=== PATIENT | female | born 1980 | race Caucasian/White ===

== ENCOUNTER 2018-02-20 08:12 | Inpatient (IN) | payer OTHER ==
[~2018-02-20] VITALS: Ht 170.2 cm; Wt 77.1 kg
[2018-02-20 08:52] VITALS: BP 118/58
[2018-02-20 09:05] LABS: ABSOLUTE BASOPHIL COUNT 0 /CUMM (0.0-0.2); ABSOLUTE EOSINOPHIL COUNT 0.1 /CUMM (0.0-0.7); ABSOLUTE GRANULOCYTE CT 7.8 /CUMM (1.4-6.5); ABSOLUTE LYMPH COUNT 1.9 /CUMM (1.2-3.4); ABSOLUTE MONOCYTE COUNT 0.4 /CUMM (0.10-0.60); BASOPHIL % 0.1 % (0.0-2.0); EOSINOPHIL % 0.6 % (0-5); GRANULOCYTE % 76.8 % (42.2-75.2); HEMATOCRIT 38.3 % (37-47); MEAN CORPUSCULAR HGB 32.3 PG (27.0-31.0); MEAN CORPUSCULAR HGB CONC 33.1 G/DL (33.0-37.0); MEAN CORPUSCULAR VOLUME 97.4 FL (81.0-99.0); MEAN PLATELET VOLUME 9.3 FL (7.4-10.4); PLATELET COUNT 249 /CUMM (130-400); RBC DISTRIBUTION WIDTH 13.2 % (11.5-14.5); RED BLOOD CELL CT 3.93 /CUMM (4.20-5.40); WHITE BLOOD CELL COUNT 10.2 /CUMM (4.8-10.8)
--- NOTE | 2018-02-20 15:32 | Labor & Delivery Summary ---
Delivery Summary Vaginal Delivery: Vaginal: vertex Episiotomy/Lacerations: Episiotomy/Lacerations: lac Type: 1st degree Repair: 3-0 layered Anesthesia: epi Placenta: Placenta: spontanteous, normal, 3 vessel, nuchal cord (x_), 2 Anesthesia: epidural Baby's Weight: 5-12 Apgars - 1 Min: 9 Apgars - 5 Min: 9
[2018-02-21 08:09] LABS: ABSOLUTE BASOPHIL COUNT 0 /CUMM (0.0-0.2); ABSOLUTE EOSINOPHIL COUNT 0.1 /CUMM (0.0-0.7); ABSOLUTE GRANULOCYTE CT 10.6 /CUMM (1.4-6.5); ABSOLUTE LYMPH COUNT 1.8 /CUMM (1.2-3.4); ABSOLUTE MONOCYTE COUNT 0.6 /CUMM (0.10-0.60); BASOPHIL % 0.1 % (0.0-2.0); EOSINOPHIL % 0.6 % (0-5); HEMATOCRIT 37.2 % (37-47); MEAN CORPUSCULAR HGB 32.7 PG (27.0-31.0); MEAN CORPUSCULAR HGB CONC 33.7 G/DL (33.0-37.0); MEAN PLATELET VOLUME 9.8 FL (7.4-10.4); PLATELET COUNT 210 /CUMM (130-400); RED BLOOD CELL CT 3.83 /CUMM (4.20-5.40); WHITE BLOOD CELL COUNT 13.1 /CUMM (4.8-10.8)
[2018-02-22] MEDS ORDERED: DOCUSATE SODIU100 M3 PO (05:53)
[2018-02-22] MEDS ORDERED: IBUPROFEN800 M1 PO (05:53)
--- NOTE | 2018-02-22 07:19 | History & Physical Pre-Op ---
General Information and HPI History of Present Illness: This patient is a 37-year-old 2 para 1 LMP 05/13/2007 EDC 02/17/2018 at 40 weeks and 3 days who presents in active labor. Her care is complete and remarkable for SGA baby followed with serial ultrasounds and weekly NSTs which were reactive and reassuring. Past OB history significant for 1. Allergies/Medications Allergies: Coded Allergies: NO KNOWN ALLERGIES ([facility] 02/20/18) Uncoded Allergies: SEASONAL ALLERGIES (02/20/18) Home Med list Docusate Sodium 100 MG CAPSULE 100 MG PO BID PRN STOOL SOFTENER Ibuprofen 800 MG TABLET 800 MG PO Q6P PRN UTERINE CRAMPING Past History Medical History Isolation History: Standard Surgical History Pertinent Surgical History: none Past Family/Social History Psychosocial History Smoking Status: Never Smoked Review of Systems Review of Systems Constitutional: Reports: no symptoms. EENTM: Reports: no symptoms. Cardiovascular: Reports: no symptoms. Respiratory: Reports: no symptoms. GI: Reports: no symptoms. Genitourinary: Reports: no symptoms. Musculoskeletal: Reports: no symptoms. Skin: Reports: no symptoms. Neurological/Psychological: Reports: no symptoms. Hematologic/Endocrine: Reports: no symptoms. Immunologic/Allergic: Reports: no symptoms. All Other Systems: Reviewed and Negative Exam & Diagnostic Data Last 24 Hrs of Vital Signs/I&O Vital signs stable Physical Exam: HEENT: Normocephalic atraumatic Chest: Clear to auscultation bilaterally Cardiovascular: Normal S1-S2 Abdomen: Gravid, cephalic, estimated weight 6-1/2 pounds Pelvic: 4 cm 100% 0 station Extremities: No clubbing cyanosis or edema Neurologic: Nonfocal Assessment/Plan Assessment/Plan: Term in active labor Plan: Expectant management As Ranked By This Provider Problem List: 1.
--- NOTE | 2018-02-22 07:21 | PN- Post Delivery/GYN ---
Subjective Subjective: No complaint Review of Systems: Negative Objective Last 24 Hrs of Vital Signs/I&O Vital signs stable Physical Exam: Fundus firm Extremities nontender Assessment/Plan Assessment/Plan Status post day 2 Circumcision, discharge
== END 2018-02-22 11:10 | DRG 775 ==
LOC: CBCO 08:12 → GNO 08:27
PROVIDERS: Obstetrics & Gynecology
PROC: 10E0XZZ Delivery of Products of Conception, External Approach (ICD-10-PCS; principal; 2018-02-20)
PROC: 0HQ9XZZ Repair Perineum Skin, External Approach (ICD-10-PCS; principal; 2018-02-20)
DX: O70.0 First degree perineal laceration during delivery (principal); O36.5930 Maternal care for other known or suspected poor fetal growth, third trimester, not applicable or unspecified; Z3A.40 40 weeks gestation of pregnancy; Z37.0 Single live birth
CPT/HCPCS: GNOS; 81001; 87086; 88307; J7120